=== PATIENT | female | born 1955 | race Caucasian/White ===

== ENCOUNTER 2017-07-31 18:04 | Emergency (ER) | payer OTHER ==
[~2017-07-31] VITALS: Ht 172.7 cm; Wt 86.2 kg
--- NOTE | ~2017-07-31 | EKG ---
[address] [address] ELECTROCARDIOGRAM REPORT Name: ANGELY PERRY [facility] [id number] Admission: 07/31/17 Attend Phys: Discharge: 07/31/17 Date of : 55 Report #: [id number] THIS REPORT FOR: //name// [facility] ED Test Date: 2017-07-31 Test Time: 18:07:59 Pat Name: ANGELY PERRY Department: Room: Gender: F [employer]: 89 : 1955 Requested By: Michelle Bañuelos Order Number: [id number] MD: Michael Mock Measurements Intervals [place] Rate: 99 P: 21 ID: [id number] QRS: 3 QRSD: 108 T: 51 QT: 377 QTc: 484 Interpretive Statements Sinus rhythm Borderline prolonged QT interval No previous ECG available for comparison Electronically Signed On 07-31-2017 22:48:25 CDT by Michael Mock [email or web address] <ELECTRONICALLY SIGNED> By: Michael Mock MD 07/31/17 2248 1807 180 MD YONNY Wilson
[2017-07-31 18:08] VITALS: BP 152/89
== END 2017-07-31 18:39 | disposition left against medical advice (07) ==
LOC: ER 18:04
DX: Z53.21 Procedure and treatment not carried out due to patient leaving prior to being seen by health care provider (principal)